=== PATIENT | female | born 1940 | race Native Hawaiian/Other Pacific Islander ===

== ENCOUNTER 2018-03-23 15:41 | Emergency (ER) | payer SELFPAY ==
[2018-03-23 16:05] VITALS: BP 120/59
== END 2018-03-23 20:00 | disposition left against medical advice (07) ==
LOC: ED 15:41
DX: R05 Cough (principal); Z53.21 Procedure and treatment not carried out due to patient leaving prior to being seen by health care provider

== ENCOUNTER 2018-11-26 11:17 | Inpatient (IN) | payer MEDICARE ==
[2018-11-26] MEDS ORDERED: ASPIRIN PO ONE (11:58)
--- NOTE | 2018-11-26 12:00 | Emergency Department Report ---
ED Dizziness HPI - General Chief Complaint: Dizziness Stated Complaint: CHEST TIGHT/LFT LEG/HEAD PAIN Time Seen by Provider: 11/26/18 11:56 Source: patient Mode of arrival: Ambulatory Limitations: Language Barrier - History of Present Illness Initial Comments: Patient is a 78-year-old female that presents emergency room with complaints of dizziness, chest pressure, left leg pain and headache. Patient states the headache and dizziness to 3 days ago after stopping her amlodipine. Patient states the headache and dizziness or worsening. Patient states her leg pain and chest pressure started last night. Patient states the pressure in her chest is a 1-2 out of 10 and nonradiating. Patient states that the chest pressure is better with rest and worse with exertion. Patient states her left leg pain is a 4 out of 10 MD Complaint: dizziness -: Sudden Timing: sudden onset History of Same: No History of Trauma: No Severity: severe Improves With: rest Worsens With: movement, exertion Associated Symptoms: chest pain. denies: ataxia, confusion, cough, diaphoresis, fever/chills, loss of appetite, malaise, seizure, shortness of breath, syncope, weakness - Related Data Home Medications Medication Instructions Recorded Confirmed Last Taken Omeprazole 40 mg PO DAILY 11/26/18 11/26/18 Unknown amLODIPine [Norvasc] 10 mg PO DAILY 11/26/18 11/26/18 Unknown Allergies Allergy/AdvReac Type Severity Reaction Status Date / Time No Known Allergies Allergy Verified 11/26/18 11:38 ED Review of Systems ROS: Stated complaint: CHEST TIGHT/LFT LEG/HEAD PAIN Other details as noted in HPI Constitutional: denies: chills, fever Eyes: denies: eye pain, eye discharge, vision change ENT: denies: ear pain, throat pain Respiratory: denies: cough, shortness of breath, wheezing Cardiovascular: chest pain. denies: palpitations Endocrine: no symptoms reported Gastrointestinal: denies: abdominal pain, nausea, diarrhea Genitourinary: denies: urgency, dysuria, discharge Musculoskeletal: denies: back pain, joint swelling, arthralgia Skin: denies: rash, lesions Neurological: headache, vertigo. denies: weakness, paresthesias Psychiatric: denies: anxiety, depression Hematological/Lymphatic: denies: easy bleeding, easy bruising ED Past Medical Hx - Past Medical History Previous Medical History?: Yes Hx Hypertension: Yes - Surgical History Past Surgical History?: Yes Additional Surgical History: hysterectomy,prolasped vaginal canal, tonsils and adenoids - Family History Family history: no significant - Social History Smoking Status: Never Smoker Substance Use Type: None - Medications Home Medications: Home Medications Medication Instructions Recorded Confirmed Last Taken Type Omeprazole 40 mg PO DAILY 11/26/18 11/26/18 Unknown History amLODIPine [Norvasc] 10 mg PO DAILY 11/26/18 11/26/18 Unknown History ED Physical Exam - General Limitations: Language Barrier General appearance: alert, in no apparent distress - Head Head exam: Present: atraumatic, normocephalic - Eye Eye exam: Present: normal appearance - ENT ENT exam: Present: mucous membranes moist - Neck Neck exam: Present: normal inspection - Respiratory Respiratory exam: Present: normal lung sounds bilaterally. Absent: respiratory distress - Cardiovascular Cardiovascular Exam: Present: regular rate, normal rhythm. Absent: systolic murmur, diastolic murmur, rubs, gallop - GI/Abdominal GI/Abdominal exam: Present: soft, normal bowel sounds - Extremities Exam Extremities exam: Present: normal inspection - Back Exam Back exam: Present: normal inspection - Neurological Exam Neurological exam: Present: alert, oriented X3 - Psychiatric Psychiatric exam: Present: normal affect, normal mood - Skin Skin exam: Present: warm, dry, intact, normal color. Absent: rash ED Course Vital Signs 11/26/18 11/26/18 11/26/18 11:20 11:49 12:00 Temperature 97.6 F Pulse Rate 66 60 57 L Respiratory 18 18 20 Rate Blood Pressure 158/89 166/75 O2 Sat by Pulse 99 98 97 Oximetry 11/26/18 11/26/18 11/26/18 12:15 13:09 13:15 Temperature Pulse Rate 64 74 56 L Respiratory 13 16 Rate Blood Pressure 166/75 166/75 166/75 O2 Sat by Pulse 98 Oximetry 11/26/18 11/26/18 11/26/18 13:31 13:45 14:01 Temperature Pulse Rate 55 L 52 L 61 Respiratory 17 17 12 Rate Blood Pressure 166/75 166/75 166/75 O2 Sat by Pulse Oximetry 11/26/18 11/26/18 11/26/18 14:23 14:31 14:45 Temperature Pulse Rate 60 54 L 57 L Respiratory 20 21 11 L Rate Blood Pressure 166/75 145/62 145/62 O2 Sat by Pulse Oximetry 11/26/18 11/26/18 11/26/18 15:00 15:15 15:31 Temperature Pulse Rate 71 79 62 Respiratory 16 22 18 Rate Blood Pressure 166/81 166/81 145/62 O2 Sat by Pulse Oximetry 11/26/18 11/26/18 11/26/18 15:45 16:00 16:15 Temperature Pulse Rate 67 64 57 L Respiratory 17 20 18 Rate Blood Pressure 145/62 137/60 137/60 O2 Sat by Pulse Oximetry 11/26/18 11/26/18 11/26/18 16:31 16:45 17:00 Temperature Pulse Rate 58 L 58 L 66 Respiratory 17 17 14 Rate Blood Pressure 137/60 137/60 122/59 O2 Sat by Pulse Oximetry 11/26/18 11/26/18 17:15 17:31 Temperature Pulse Rate 70 60 Respiratory 15 17 Rate Blood Pressure 122/59 137/60 O2 Sat by Pulse Oximetry - Reevaluation(s) Reevaluation #1: Discussed all results with patient. Patient to be admitted to the hospitalist service. Patient agrees with plan of care and admission. 11/26/18 13:50 - Consultations Consultation #1: Hospital was consulted for admission. Hospitalist to admit patient and assume care of patient. 11/26/18 13:44 ED Medical Decision Making - Lab Data Result diagrams: 11/26/18 12:05 11/26/18 12:05 - EKG Data -: EKG Interpreted by [facility] EKG shows normal: sinus rhythm, axis, intervals, QRS complexes, ST-T waves Rate: normal - Radiology Data Radiology results: report reviewed FINAL REPORT EXAM: VL VENOUS DUPLEX LE LT HISTORY: left leg pain COMPARISON: None. TECHNIQUE: Duplex Doppler ultrasound of the veins of the left lower extremity was performed FINDINGS: The left common femoral vein, superficial femoral vein, popliteal vein, posterior tibial vein, and peroneal vein are patent, compressible, and demonstrate normal waveforms and augmentation. The left greater saphenous vein is patent and compressible. The right common femoral vein and superficial femoral vein are patent and compressible. The right greater saphenous vein is patent and compressible. IMPRESSION: No evidence of deep venous thrombosis of the left lower extremity. AP CHEST: HISTORY: Lightheadedness, dizziness AP view of the chest demonstrates a normal mediastinal and cardiac contour with clear lungs and normal bony and soft tissue structures. IMPRESSION: Unremarkable AP chest. - Medical Decision Making She is 78-year-old female Emergency room with complaints of chest pressure and left leg pain. Patient admitted to the hospitalist service for further treatment. Patient admitted to rule out ACS. Patient had a ultrasound done of the left lower extremity was negative for DVT. Patient's initial cardiac workup is negative. Patient EKG negative. Patient chest x-ray negative. - Differential Diagnosis ACS. Chest pain. Chest pressure. Left lower extremity pain. DVT. Critical care attestation.: If time is entered above; I have spent that time in minutes in the direct care of this critically ill patient, excluding procedure time. ED Disposition Clinical Impression: Left arm pain, Dizziness Chest pain Qualifiers: Chest pain type: unspecified Qualified Code(s): R07.9 - Chest pain, unspecified Leg pain Qualifiers: Laterality: left Qualified Code(s): M79.605 - Pain in left leg Headache Qualifiers: Headache type: unspecified Headache chronicity pattern: acute headache Intractability: not intractable Qualified Code(s): R51 - Headache Disposition: -09 OP ADMIT IP TO THIS HOSP Is pt being admited?: Yes Does the pt Need Aspirin: No Condition: Serious Time of Disposition: 13:41
--- NOTE | 2018-11-26 12:28 | XRay Report ---
AP CHEST: HISTORY: Lightheadedness, dizziness AP view of the chest demonstrates a normal mediastinal and cardiac contour with clear lungs and normal bony and soft tissue structures. IMPRESSION: Unremarkable AP chest.
[2018-11-26 12:44] LABS: Basophils % (Auto) 0.6 % (0.0-1.8); Eosinophils # (Auto) 0.2 K/mm3 (0.0-0.4); Eosinophils % (Auto) 3.1 % (0.0-4.3); Hematocrit 40.1 % (30.3-42.9); Lymphocytes # (Auto) 1.9 K/mm3 (1.2-5.4); Lymphocytes % (Auto) 36.3 % (13.4-35.0); Mean Corpuscular HGB Conc 32 % (30-34); Mean Corpuscular Volume 90 fl (79-97); Monocytes # (Auto) 0.6 K/mm3 (0.0-0.8); Monocytes % (Auto) 10.6 % (0.0-7.3); Platelet Count 278 K/mm3 (140-440); Red Blood Count 4.44 M/mm3 (3.65-5.03)
[2018-11-26 12:57] LABS: Creatine Kinase MB 1.9 ng/mL (0.0-4.0)
[2018-11-26 13:02] LABS: Alanine Aminotransferase 12 units/L (7-56); BUN/Creatinine Ratio 23; Blood Urea Nitrogen 14 mg/dL (7-17); Calcium 10.4 mg/dL (8.4-10.2); Hemolysis Index 13
[2018-11-26] MEDS ORDERED: PERCOCET 5/325 PO PRN (14:04)
[2018-11-26] MEDS ORDERED: TYLENOL PO PRN (14:04)
[2018-11-26] MEDS ORDERED: ZOFRAN IV PRN (14:04)
[2018-11-26] MEDS ORDERED: DILAUDID IV PRN (14:04)
[2018-11-26] MEDS ORDERED: SODIUM CHLORIDE FLUSH SYRINGE 10 ML IV PRN (14:04)
--- NOTE | 2018-11-26 14:18 | Vascular Lab Report ---
FINAL REPORT EXAM: VL VENOUS DUPLEX LE LT HISTORY: left leg pain COMPARISON: None. TECHNIQUE: Duplex Doppler ultrasound of the veins of the left lower extremity was performed FINDINGS: The left common femoral vein, superficial femoral vein, popliteal vein, posterior tibial vein, and pe roneal vein are patent, compressible, and demonstrate normal waveforms and augmentation. The left gre ater saphenous vein is patent and compressible. The right common femoral vein and superficial femoral vein are patent and compressible. The right gre ater saphenous vein is patent and compressible. IMPRESSION: No evidence of deep venous thrombosis of the left lower extremity.
[2018-11-26] MEDS: SODIUM CHLORIDE FLUSH SYRINGE 10 ML IV SCH (21:33)
--- NOTE | 2018-11-26 23:19 | History and Physical Report ---
History of Present Illness Date of examination: 11/26/18 Date of admission: 11/26/18 13:44 Chief complaint: Chest pain for 1 day History of present illness: 78-year-old -Japanese female with past medical history significant for hypertension comes in for dizziness and headache for 3 days. Patient also developed chest pain since yesterday. Says pain is pressure-like sensation about 3-4 on a scale of 1-2. No diaphoresis. Patient also has a left leg pain. No shortness of breath. Stopped taking amlodipine for unknown reasons. No exacerbating or relieving factors Past Medical History Previous Medical History?: Yes Hx Hypertension: Yes Surgical History Past Surgical History?: Yes Additional Surgical History: hysterectomy,prolasped vaginal canal, tonsils and adenoids Family History Family history: no significant Social History Smoking Status: Never Smoker Substance Use Type: None Medications Home Medications: Home Medications Medication Instructions Recorded Confirmed Last Taken Type Omeprazole 40 mg PO DAILY 11/26/18 11/26/18 Unknown History amLODIPine [Norvasc] 10 mg PO DAILY 11/26/18 11/26/18 Unknown History Review of Systems ROS: Stated complaint: CHEST TIGHT/LFT LEG/HEAD PAIN Other details as noted in HPI Constitutional: denies: chills, fever Eyes: denies: eye pain, eye discharge, vision change ENT: denies: ear pain, throat pain Respiratory: denies: cough, shortness of breath, wheezing Cardiovascular: chest pain. denies: palpitations Endocrine: no symptoms reported Gastrointestinal: denies: abdominal pain, nausea, diarrhea Genitourinary: denies: urgency, dysuria, discharge Musculoskeletal: denies: back pain, joint swelling, arthralgia Skin: denies: rash, lesions Neurological: headache, vertigo. denies: weakness, paresthesias Psychiatric: denies: anxiety, depression Hematological/Lymphatic: denies: easy bleeding, easy bruising Medications and Allergies Allergies Allergy/AdvReac Type Severity Reaction Status Date / Time No Known Allergies Allergy Verified 11/26/18 11:38 Home Medications Medication Instructions Recorded Confirmed Last Taken Type Omeprazole 40 mg PO DAILY 11/26/18 11/26/18 Unknown History amLODIPine [Norvasc] 10 mg PO DAILY 11/26/18 11/26/18 Unknown History Active Meds: Active Medications Acetaminophen (Tylenol) 650 mg PO Q4H PRN PRN Reason: Pain MILD(1-3)/Fever >100.5/MARTINEZ Hydromorphone HCl (Dilaudid) 0.25 mg IV Q3H PRN PRN Reason: Pain, Moderate (4-6) Ondansetron HCl (Zofran) 4 mg IV Q8H PRN PRN Reason: Nausea And Vomiting Oxycodone/Acetaminophen (Percocet 5/325) 1 tab PO Q6H PRN PRN Reason: Pain, Moderate (4-6) Sodium Chloride (Sodium Chloride Flush Syringe 10 Ml) 10 ml IV BID STEPHEN Last Admin: 11/26/18 21:33 Dose: 10 ml Documented by: Sodium Chloride (Sodium Chloride Flush Syringe 10 Ml) 10 ml IV PRN PRN PRN Reason: LINE FLUSH Exam - Physical Exam Narrative exam: Patient lying in bed - Constitutional Vitals: Temp Pulse Resp BP Pulse Ox 97.6 F 60 17 137/60 98 11/26/18 11:20 11/26/18 17:31 11/26/18 17:31 11/26/18 17:31 11/26/18 12:15 General appearance: Present: no acute distress, well-nourished - EENT Eyes: Present: PERRL ENT: hearing intact, clear oral mucosa - Neck Neck: Present: supple, normal ROM - Respiratory Respiratory effort: normal Respiratory: bilateral: CTA - Cardiovascular Heart rate: 78 Rhythm: regular Heart Sounds: Present: S1 & S2. Absent: rub, click - Extremities Extremities: no ischemia, pulses intact, pulses symmetrical, No edema Peripheral Pulses: within normal limits - Abdominal General gastrointestinal: Present: soft, non-tender, non-distended, normal bowel sounds Female genitourinary: Present: normal - Rectal Rectal Exam: deferred - Integumentary Integumentary: Present: clear, warm, dry - Musculoskeletal Musculoskeletal: gait normal, strength equal bilaterally - Psychiatric Psychiatric: appropriate mood/affect, intact judgment & insight - Neurologic Neurologic: CNII-XII intact, moves all extremities - Allied Health Allied health notes reviewed: nursing, case management Results - Labs CBC & Chem 7: 11/26/18 12:05 11/26/18 12:05 Labs: Laboratory Last Values WBC 5.3 K/mm3 (4.5-11.0) 11/26/18 12:05 RBC 4.44 M/mm3 (3.65-5.03) 11/26/18 12:05 Hgb 13.0 gm/dl (10.1-14.3) 11/26/18 12:05 Hct 40.1 % (30.3-42.9) 11/26/18 12:05 MCV 90 fl (79-97) 11/26/18 12:05 MCH 29 pg (28-32) 11/26/18 12:05 MCHC 32 % (30-34) 11/26/18 12:05 RDW 14.0 % (13.2-15.2) 11/26/18 12:05 Plt Count 278 K/mm3 (140-440) 11/26/18 12:05 Lymph % (Auto) 36.3 % (13.4-35.0) H 11/26/18 12:05 [place] % (Auto) 10.6 % (0.0-7.3) H 11/26/18 12:05 Eos % (Auto) 3.1 % (0.0-4.3) 11/26/18 12:05 Baso % (Auto) 0.6 % (0.0-1.8) 11/26/18 12:05 Lymph # 1.9 K/mm3 (1.2-5.4) 11/26/18 12:05 [place] # 0.6 K/mm3 (0.0-0.8) 11/26/18 12:05 Eos # 0.2 K/mm3 (0.0-0.4) 11/26/18 12:05 Baso # 0.0 K/mm3 (0.0-0.1) 11/26/18 12:05 Seg Neutrophils % 49.4 % (40.0-70.0) 11/26/18 12:05 Seg Neutrophils # 2.6 K/mm3 (1.8-7.7) 11/26/18 12:05 Sodium 139 mmol/L (137-145) 11/26/18 12:05 Potassium 4.5 mmol/L (3.6-5.0) 11/26/18 12:05 Chloride 101.6 mmol/L (98-107) 11/26/18 12:05 Carbon Dioxide 26 mmol/L (22-30) 11/26/18 12:05 Anion Gap 16 mmol/L 11/26/18 12:05 BUN 14 mg/dL (7-17) 11/26/18 12:05 Creatinine 0.6 mg/dL (0.7-1.2) L 11/26/18 12:05 Estimated GFR > 60 ml/min 11/26/18 12:05 BUN/Creatinine Ratio 23 % 11/26/18 12:05 Glucose 94 mg/dL (65-100) 11/26/18 12:05 Calcium 10.4 mg/dL (8.4-10.2) H 11/26/18 12:05 Total Bilirubin 0.50 mg/dL (0.1-1.2) 11/26/18 12:05 AST 20 units/L (5-40) 11/26/18 12:05 ALT 12 units/L (7-56) 11/26/18 12:05 Alkaline Phosphatase 68 units/L (35-129) 11/26/18 12:05 Total Creatine Kinase 59 units/L (30-135) 11/26/18 12:05 CK-MB (CK-2) 1.9 ng/mL (0.0-4.0) 11/26/18 12:05 CK-MB (CK-2) Rel Index 3.2 (0-4) 11/26/18 12:05 Troponin T < 0.010 ng/mL (0.00-0.029) 11/26/18 12:05 Total Protein 8.3 g/dL (6.3-8.2) H 11/26/18 12:05 Albumin 4.0 g/dL (3.9-5) 11/26/18 12:05 Albumin/Globulin Ratio 0.9 % 11/26/18 12:05 Short CBC 11/26/18 Range/Units 12:05 WBC 5.3 (4.5-11.0) K/mm3 Hgb 13.0 (10.1-14.3) gm/dl Hct 40.1 (30.3-42.9) % Plt Count 278 (140-440) K/mm3 BMP 11/26/18 12:05 Sodium 139 Potassium 4.5 Chloride 101.6 Carbon Dioxide 26 BUN 14 Creatinine 0.6 L Glucose 94 Calcium 10.4 H Cardiac Enzymes 11/26/18 11/26/18 Range/Units 12:05 12:05 Total Creatine Kinase 59 (30-135) units/L CK-MB (CK-2) 1.9 (0.0-4.0) ng/mL Troponin T < 0.010 (0.00-0.029) ng/mL Liver Function 11/26/18 Range/Units 12:05 Total Bilirubin 0.50 (0.1-1.2) mg/dL AST 20 (5-40) units/L ALT 12 (7-56) units/L Alkaline Phosphatase 68 (35-129) units/L Albumin 4.0 (3.9-5) g/dL - Imaging and Cardiology EKG: report reviewed (normal sinus rhythm and no acute ST-T wave changes) Chest x-ray: report reviewed (no acute findings) Imaging and Cardiology: Venous duplex scan lower extremity FINDINGS: The left common femoral vein, superficial femoral vein, popliteal vein, posterior tibial vein, and peroneal vein are patent, compressible, and demonstrate normal waveforms and augmentation. The left greater saphenous vein is patent and compressible. The right common femoral vein and superficial femoral vein are patent and compressible. The right greater saphenous vein is patent and compressible. IMPRESSION: No evidence of deep venous thrombosis of the left lower extremity. EKG Data EKG Interpreted by Me EKG shows normal: sinus rhythm, axis, intervals, QRS complexes, ST-T waves Rate: normal Assessment and Plan Advance Directives: Yes (full code) VTE prophylaxis?: Chemical Plan of care discussed with patient/family: Yes - Patient Problems (1) Chest pain Current Visit: Yes Status: Acute Qualifiers: Chest pain type: unspecified Qualified Code(s): R07.9 - Chest pain, unspecified Plan to address problem: Chest pain rule out ND Troponin-serial ordered Lexiscan in the morning (2) Hypertension Current Visit: Yes Status: Chronic Qualifiers: Hypertension type: essential hypertension Qualified Code(s): I10 - Essential (primary) hypertension Plan to address problem: Continue amlodipine 10 mg once a day (3) Dizziness Current Visit: Yes Status: Acute Plan to address problem: Symptomatic treatment (4) Leg pain Current Visit: Yes Status: Acute Qualifiers: Laterality: left Qualified Code(s): M79.605 - Pain in left leg Plan to address problem: DVT ruled out Symptomatic treatment (5) DVT prophylaxis Current Visit: Yes Status: Acute Plan to address problem: Lovenox and GI prophylaxis
[2018-11-27 06:13] LABS: Basophils % (Auto) 0.4 % (0.0-1.8); Eosinophils # (Auto) 0.2 K/mm3 (0.0-0.4); Eosinophils % (Auto) 3.9 % (0.0-4.3); Hematocrit 39.3 % (30.3-42.9); Hemoglobin 12.8 gm/dl (10.1-14.3); Lymphocytes # (Auto) 1.7 K/mm3 (1.2-5.4); Lymphocytes % (Auto) 35.7 % (13.4-35.0); Mean Corpuscular HGB Conc 33 % (30-34); Mean Corpuscular Volume 89 fl (79-97); Monocytes # (Auto) 0.5 K/mm3 (0.0-0.8); Monocytes % (Auto) 10.3 % (0.0-7.3); Platelet Count 284 K/mm3 (140-440); Red Blood Count 4.41 M/mm3 (3.65-5.03); Red Cell Distribution Width 14.2 % (13.2-15.2)
[2018-11-27 06:56] LABS: Alanine Aminotransferase 10 units/L (7-56); Albumin 3.7 g/dL (3.9-5); BUN/Creatinine Ratio 23; Blood Urea Nitrogen 16 mg/dL (7-17); Calcium 9.8 mg/dL (8.4-10.2); Hemolysis Index 16
[2018-11-27] MEDS ORDERED: LEXISCAN IV ONE ×2 (08:45→08:46)
[2018-11-27] MEDS ORDERED: NORVASC PO SCH (10:00)
[2018-11-27] MEDS: SODIUM CHLORIDE FLUSH SYRINGE 10 ML IV SCH (12:05)
[2018-11-27 12:09] VITALS: BP 146/64
--- NOTE | 2018-11-27 13:27 | Treadmill Report ---
The patient is a 78-year-old female being evaluated for chest pain. A stress nuclear imaging was performed. The patient exercised for 6 minutes on modified Sotero protocol attained 100% of the predicted maximal heart rate. Did not have any chest pain, no EKG changes were noted. Myocardial perfusion imaging was performed at rest and also post-exercise. This was performed using technetium pyrophosphate scan. Resting images showed normal perfusion and post-stress images also showed normal perfusion. Normal sized left ventricle with normal contractility and wall thickening noted. Transient ischemic dilation ratio was found to be 1.20 and post-stress left ventricular ejection fraction was calculated to be 76%. 1. Exercise tolerance. 2. Negative for angina and negative for ischemia on the EKG. 3. Normal myocardial perfusion imaging noted with normal ejection fraction of 76%. JOB# [id number] ARIEL/FELA VALENTE
--- NOTE | 2018-11-27 14:17 | Discharge Summary ---
Providers - Providers Date of Admission: 11/26/18 13:44 Date of discharge: 11/27/18 Attending physician: JOSH TORO Hospitalization Condition: Fair Hospital course: Patient is 78 yo presented with chest pain. She was given Aspirin and admitted to rule out acute coronary syndrome. Stress test done next day was negative. Patient therefore discharged home. Chest pain due to GERD. Disposition: TO HOME OR SELFCARE - Discharge Diagnoses (1) GERD (gastroesophageal reflux disease) Status: Acute (2) Chest pain Status: Acute Qualifiers: Chest pain type: unspecified Qualified Code(s): R07.9 - Chest pain, unspecified (3) Hypertension Status: Chronic Qualifiers: Hypertension type: essential hypertension Qualified Code(s): I10 - Essential (primary) hypertension Core Measure Documentation - Palliative Care Palliative Care/ Comfort Measures: Not Applicable - Core Measures Any of the following diagnoses?: none Exam - Constitutional Vitals: Temp Pulse Resp BP Pulse Ox 97.7 F 59 L 18 146/64 99 11/27/18 12:09 11/27/18 12:07 11/27/18 12:07 11/27/18 12:07 11/27/18 12:07 Plan Activity: no restrictions Diet: low fat, low cholesterol, low salt Additional Instructions: 1.Follow up with PCP in 1 week. Follow up with: Jelani Robertson [Other] - 7 Days Prescriptions: Famotidine [Pepcid] 20 mg PO BID #30 tablet
--- NOTE | 2018-12-02 06:52 | Query- Chest Pain ---
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 Questions asked do not imply a particular answer is desired or expected. We greatly appreciate your clarification on this issue. Clinical Documentation States: 78-year-old -[place] female with past medical history significant for hypertension comes in for dizziness and headache for 3 days. Patient also developed chest pain since yesterday. Says pain is pressure-like sensation about 3-4 on a scale of 1-2. No diaphoresis. Patient also has a left leg pain. No shortness of breath. Stopped taking amlodipine for unknown reasons. Assessment and Plan Chest pain Hypertension Clinical Findings Show: 11/26/18(12:05) 11/26/18(23:37) 11/27/18 Troponin <0.010 <0.010 <0.010 Treadmill Report: Normal myocardial perfusion. Please document the etiology of Chest Pain: [ ] Myocardial Infarction [ ] Pneumonia [ ] Mediastinitis [ ] Costochondritis [ ] Pulmonary Embolism [ ] Coronary Artery Disease [x ] GERD [ ] Other: [ ] Comment/Explanation: Present on Admission: [x ] Yes (Y) [ ] Clinically undeterminable (W) [ ] No(N) Please document response in your Progress Notes and/or Discharge Summary and indicate if the condition was present on admission. AMBROSIO
== END 2018-11-27 15:04 | disposition home or self-care (01) | DRG 392 ==
LOC: ED 11:17 → 4A 13:44
PROVIDERS: ADMIT Internal Medicine; ATTEND Internal Medicine
DX: K21.9 Gastro-esophageal reflux disease without esophagitis (principal); R07.9 Chest pain, unspecified; M79.605 Pain in left leg; I10 Essential (primary) hypertension; R51 Headache; Z90.710 Acquired absence of both cervix and uterus; Z90.89 Acquired absence of other organs; Z79.899 Other long term (current) drug therapy
CPT/HCPCS: 36415; 71045; 78452; 80053; 82550; 82553; 84484; 85025; 93005; 93010; 93017; G0378; A9502; J2785